=== PATIENT | male | born 1970 | race Caucasian/White ===

== ENCOUNTER → 2016-09-22 | Outpatient (REF) ==
--- NOTE | 2016-09-22 20:53 | REP ---
Clinical: Pain and disability. Comparison: Foot series dated 04/09/2005. 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 Orthopedic hardware is identified in stable position through the talus. No acute fracture dislocation. Impression: Progressive advanced arthritic and post traumatic degenerative changes. Signed by Justen Nunez MD 09/22/2016 08:30 P
== END ==
LOC: M SMT 13:20
PROVIDERS: ATTEND Internal Medicine
DX: Z00.00 Encounter for general adult medical examination without abnormal findings (principal)